=== PATIENT | male | born 1995 | race Caucasian/White ===

== ENCOUNTER → 2018-09-05 08:17 | Outpatient (CLI) | payer BC, SELFPAY ==
[2018-09-05 10:01] LABS: Alanine Aminotransferase 28 U/L (12-78); Albumin Level 4.5 gm/dL (3.4-5.0); Albumin/Globulin Ratio 1.6 (1.1-1.8); Alkaline Phosphatase 78 U/L (46-116); Anion Gap 14.1 mEq/L (5-15); Aspartate Amino Transferase 18 U/L (15-37); Bilirubin,Total 0.5 mg/dL (0.2-1.0); Blood Urea Nitrogen 17 mg/dL (7-18); Calcium 9.3 mg/dL (8.5-10.1); Carbon Dioxide 28 mmol/L (21.0-32.0); Chloride 104 mmol/L (98-107); Chol/HDL Ratio 3.1 (1-3.5); Cholesterol 113 mg/dL (140-200); Creatinine,Serum 1.02 mg/dL (0.70-1.30); Estimated Glomerular Filt Rate 89 ml/min (>60); GFR (African American) 108 ML/MIN (>60); Globulin 2.8 gm/dl (1.3-3.2); Glucose 104 mg/dL (74-106); HDL Cholesterol 37 mg/dL (27-67); LDL Cholesterol 60 mg/dL (0-130); Potassium 4.1 mmoL/L (3.5-5.1); Sodium 142 mmol/L (136-145); Thyroid Stimulating Hormone 7.46 uIU/ml (0.358-3.740); Total Protein,Serum 7.3 gm/dL (6.4-8.2); Triglycerides 81 mg/dL (30-200); VLDL Cholesterol 16 mg/dL (0-40)
[2018-09-06 08:21] LABS: HIV Screen 4th Generation wRfx Non Reactive (Non Reactive)
[2018-09-06 10:54] LABS: Hepatitis C Antibody <0.1 s/co ratio (0.0-0.9); Rapid Plasma Reagin Ab Titer Non Reactive (NonRea<1:1)
== END ==
PROVIDERS: Visit Provider Nurse Practitioner Family
DX: Z00.00 Encounter for general adult medical examination without abnormal findings (principal); Z68.35 Body mass index [BMI] 35.0-35.9, adult; Z13.9 Encounter for screening, unspecified
CPT/HCPCS: 36415; 80053; 80061; 84443; 86592; 86703; 87380; G0432

== ENCOUNTER → 2018-12-02 07:23 | Outpatient (CLI) | payer BC, SELFPAY ==
[2018-12-02 09:21] LABS: Free T4 (Free Thyroxine) 1.11 ng/dl (0.76-1.46); Thyroid Stimulating Hormone 3.78 uIU/ml (0.358-3.740)
== END ==
PROVIDERS: Visit Provider Nurse Practitioner Family
DX: E03.9 Hypothyroidism, unspecified (principal)
CPT/HCPCS: 36415; 84439; 84443

== ENCOUNTER → 2019-05-01 09:36 | Outpatient (CLI) | payer BC, SELFPAY ==
[2019-05-01 12:01] LABS: Free T4 (Free Thyroxine) 1.15 ng/dl (0.76-1.46); Thyroid Stimulating Hormone 2.73 uIU/ml (0.358-3.740)
[2019-05-02 11:28] LABS: HIV Screen 4th Generation wRfx Non Reactive (Non Reactive)
== END ==
PROVIDERS: PCP Nurse Practitioner Family; Visit Provider Nurse Practitioner Family
DX: E03.9 Hypothyroidism, unspecified (principal); Z13.9 Encounter for screening, unspecified
CPT/HCPCS: 36415; 84439; 84443; 86703; G0432

== ENCOUNTER → 2019-12-20 12:30 | Outpatient (CLI) | payer BC, SELFPAY ==
[2019-12-20 12:56] LABS: Basophils % 0.5 % (0.1-2.0); Eosinophils # 0.1 K/mm3 (0.0-0.4); Eosinophils % 1.3 % (0.1-12.0); Hematocrit 45.8 % (42.0-52.0); Hemoglobin 15.4 g/dL (14.1-18.0); Lymphocytes % 33.8 % (10-50); Mean Corpuscular HGB Conc 33.7 g/dL (31.8-35.4); Mean Corpuscular Hemoglobin 31.6 pg (27.0-31.2); Mean Corpuscular Volume 93.8 fl (80-94); Mean Platelet Volume 7.7 fl (7.4-10.4); Monocytes # 0.3 K/mm3 (0.1-1.0); Monocytes % 4.5 % (1.7-9.3); Neutrophils # 3.5 K/mm3 (1.8-7.8); Neutrophils % 59.8 % (37.0-80.0); Platelet Count 200 K/mm3 (142-424); Red Blood Count 4.89 M/mm3 (4.60-6.20); White Blood Count 5.9 K/mm3 (4.8-10.8)
[2019-12-20 13:49] LABS: Chloride 103 mmol/L (98-107); Potassium 4.4 mmoL/L (3.5-5.1); Sodium 142 mmol/L (136-145)
[2019-12-20 13:51] LABS: Blood Urea Nitrogen 18 mg/dl (9-20); Estimated Glomerular Filt Rate 102 ml/min (>60); GFR (African American) 123 ML/MIN (>60)
[2019-12-20 13:52] LABS: Alanine Aminotransferase 31 U/L (12-78); Albumin Level 4.5 g/dl (3.5-5.0); Albumin/Globulin Ratio 1.7 (1.1-1.8); Alkaline Phosphatase 81 U/L (38-126); Anion Gap 16.4 mEq/L (5-15); Aspartate Amino Transferase 25 U/L (17-59); Bilirubin,Total 0.7 mg/dl (0.2-1.3); Calcium 9.3 mg/dl (8.4-10.2); Carbon Dioxide 27 mmol/L (22.0-30.0); Globulin 2.7 g/dL (1.3-3.2); Glucose 95 mg/dl (74-100); Total Protein,Serum 7.2 g/dl (6.3-8.2)
[2019-12-21 12:35] LABS: Hepatitis C Antibody <0.1 s/co ratio (0.0-0.9)
[2019-12-21 18:10] LABS: Hep B Core Ab, Total Negative (Negative); Hep Be Ag Negative (Negative); Hepatitis B Core Antibody IgM Negative (Negative); Hepatitis B Surface Antigen Negative (Negative); Hepatitis Be Antibody Negative (Negative)
[2019-12-22 11:24] LABS: Hep B Surface Ab, Qual Reactive (.)
== END ==
PROVIDERS: Visit Provider Nurse Practitioner Family
DX: E03.9 Hypothyroidism, unspecified (principal); F32.9 Major depressive disorder, single episode, unspecified; Z13.9 Encounter for screening, unspecified; Z72.0 Tobacco use
CPT/HCPCS: 36415; 80053; 85025; 86704; 86706; 86707; 87340; 87350; 87380; 87522

== ENCOUNTER → 2020-01-04 15:19 | Outpatient (CLI) | payer BC, SELFPAY ==
[2020-01-06 19:24] LABS: HIV Screen 4th Generation wRfx Non Reactive (Non Reactive)
== END ==
PROVIDERS: Visit Provider Nurse Practitioner Family
DX: E03.9 Hypothyroidism, unspecified (principal); Z11.4 Encounter for screening for human immunodeficiency virus [HIV]
CPT/HCPCS: 36415; 84443; 86703; G0432

== ENCOUNTER → 2021-09-10 07:13 | Outpatient (CLI) | payer BC, SELFPAY ==
[2021-09-10 09:30] LABS: Thyroid Stimulating Hormone 3.95 uIU/mL (0.465-4.68)
[2021-09-11 11:41] LABS: Hepatitis C Antibody <0.1 s/co ratio (0.0-0.9)
[2021-09-11 12:31] LABS: Rapid Plasma Reagin Ab Titer Non Reactive (NonRea<1:1)
[2021-09-11 13:53] LABS: HIV Screen 4th Generation wRfx Non Reactive (Non Reactive)
== END ==
PROVIDERS: Visit Provider Nurse Practitioner Family
DX: E03.9 Hypothyroidism, unspecified (principal); Z11.4 Encounter for screening for human immunodeficiency virus [HIV]
CPT/HCPCS: 36415; 84443; 86592; 86703; 87380; G0432

== ENCOUNTER 2025-05-06 15:09 | Emergency (ER) | payer BC, SELFPAY ==
--- NOTE | 2025-05-06 15:08 | ECG_ITS ---
APPROVED REPORT Exam: Resting ECG HR:80 bpm ECG Measurements Heart Rate 80 AXES NJ 140 P 57 QRSd 97 QRS 79 QT 364 T 83 QTc 400 Conclusion SINUS RHYTHM NORMAL ECG UNCONFIRMED REPORT Electronically signed by : PATRICIA WEI, 05/06/2025 23:01:49
[2025-05-06 15:10] VITALS: BP 149/89; PULSE 81; RESP 16; TEMP 36.8; O2SAT 100; BMI 39.9
[2025-05-06 15:21] VITALS: PULSE 86; RESP 12; O2SAT 99
[2025-05-06 15:30] VITALS: PULSE 77; RESP 21; O2SAT 98
--- NOTE | 2025-05-06 15:36 | XR_ITS ---
PROCEDURE INFORMATION: Exam: XR Chest Exam date and time: 05/06/2025 3:51 PM Age: 29 years old Clinical indication: Pain; Chest pressure; Additional info: Chest pain/shortness of breath TECHNIQUE: Imaging protocol: Radiologic exam of the chest. Views: 2 views. COMPARISON: No relevant prior studies available. FINDINGS: Airway: The trachea is midline. Lungs: No focal consolidation. Pleural spaces: No significant pleural effusion. No definite pneumothorax. Heart/Mediastinum: Visualized cardiomediastinal silhouette unremarkable. Bones/joints: No acute osseous abnormality. Soft tissues: No acute soft tissue findings. IMPRESSION: No acute findings.
[2025-05-06 15:41] LABS: Hematocrit 46.6 % (42.0-52.0); Hemoglobin 15.7 g/dL (14.1-18.0); Immature Granulocytes % 0.1 %; Mean Corpuscular HGB Conc 33.7 g/dL (31.8-35.4); Mean Corpuscular Hemoglobin 31.5 pg (27.0-31.2); Mean Corpuscular Volume 93.6 fl (80-94); Nucleated Red Blood Cells % 0 %; Platelet Count 206 K/mm3 (142-424); Red Blood Count 4.98 M/mm3 (4.60-6.20); Red Cell Distribution Width-SD 42.4 fL; White Blood Count 7.1 K/mm3 (4.8-10.8)
[2025-05-06 15:44] LABS: Albumin Level 5.4 g/dl (3.5-5.0); Chloride 103 mmol/L (98-107); Potassium 4.0 mmoL/L (3.5-5.1); Sodium 144 mmol/L (136-145)
[2025-05-06 15:46] LABS: Alanine Aminotransferase 39 U/L (12-78); Albumin/Globulin Ratio 1.5 (1.1-1.8); Alkaline Phosphatase 68 U/L (38-126); Anion Gap 19.0 mEq/L (5-15); Aspartate Amino Transferase 33 U/L (17-59); Bilirubin,Total 1.0 mg/dl (0.2-1.3); Blood Urea Nitrogen 14 mg/dl (9-20); Carbon Dioxide 26 mmol/L (22.0-30.0); Creatinine Clearance Estimated 150 mL/min (50-200); Creatinine,Serum 1.10 mg/dl (0.66-1.25); Estimated Glomerular Filt Rate 78 ml/min (>60); GFR (African American) 94 ML/MIN (>60); Globulin 3.5 g/dL (1.3-3.2); Total Protein,Serum 8.9 g/dl (6.3-8.2)
[2025-05-06 15:47] LABS: Calcium 9.7 mg/dl (8.4-10.2); Glucose 112 mg/dl (74-100); Lipase 65 U/L (23-300)
[2025-05-06] MEDS: IBUPROFEN 800 MG TABLET PO (15:47)
[2025-05-06] MEDS: ACETAMINOPHEN 500MG TAB 1000 MG PO (15:48)
[2025-05-06 15:59] LABS: Troponin I < 0.01 ng/ml (0.00-0.034)
[2025-05-06 16:00] VITALS: PULSE 78; RESP 18; O2SAT 97
[2025-05-06 16:30] VITALS: PULSE 81; RESP 13; O2SAT 96
--- NOTE | 2025-05-06 17:10 | ED_ITS ---
Discharge Plan Disposition Patient Disposition: Home, Self-Care Condition: Good Prescriptions Prescriptions: No Action prednisone 10 MG tablet 10 mg PO BID 3 Days Qty: 6 0RF amoxicillin 500 MG tablet 500 mg PO TID 10 Days Qty: 30 0RF ondansetron 4 MG tablet,disintegrating 4 mg PO Q8HP PRN (Reason: Nausea) Qty: 20 0RF Referrals Follow up/Referrals: Adis Moraes II, DO [Primary Care Provider, Medical] - See instructions Activity Restrictions/Add. Instructions Additional Instructions/Restrictions: Can take Tylenol and ibuprofen for the next couple days for symptom control. Please return to the emergency department for acute or worsening symptoms. Clinical Impressions Clinical Impression: Chest pain Print Language Print Language: Liberian Discharge ED Provider: Kyra Nuñez Adult HPI General Chief complaint: Chest Pain Stated complaint: chest pain Time Seen by Provider: 05/06/25 15:15 Mode of Arrival: Ambulatory Source of Information: Patient Description of Symptoms (Recalled from ER Triage Doc. by RN): patient presents with chest pain that started Wednesday. patient states that is is mid chest around his sternum, radiates into his left chest and at times into his axilla area. he currently rates it 09/14. no cardiac history. History of Present Illness HPI narrative: Patient is a 29-year-old male who presented to the emergency department with chest pain that started Wednesday. Patient states that his chest pain was on the left side of his chest. Patient states that he is currently not having chest pain. Patient states that the pain would occur for a few seconds at a time and then stop. Patient states that the pain was not worsened by anything in particular. Patient denies any shortness of breath. Patient states that he did take some poppers as well as his Cialis on Wednesday evening and is he is unsure if this is related. Patient states that he has not been sick at all. Patient denies any abdominal pain nausea vomiting or diarrhea. Patient denies any previous surgeries. Patient does not take any daily medications besides the Cialis. Related Data Previous Rx's ?Medication ?Instructions ?Recorded amoxicillin 500 mg tablet 500 mg PO TID 10 days #30 ta bs 05/05/19 ondansetron 4 mg disintegrating 4 mg PO Q8HP PRN Nause a ##20 05/05/19 tablet prednisone 10 mg tablet 10 mg PO BID 3 days #6 tabs 05/05/19 Allergies Allergy/AdvReac Type Severity Reaction Status Date / Time INGREDIENT: NO KNOWN - NO Allergy Unknown Uncoded 05/25/17 14:54 KNOWN DRUG ALLERGY [facility] Disclaimer: The information contained in this section may have been updated after the patient was seen, as this information can be updated by other users. Social History Smoking Status: Light tobacco smoker second hand exposure: No alcohol intake: never current occupational status: other Travel in the last 8 weeks?: None Have you lived/traveled outside [place] in past 30 days?: No Contact w/someone who lives/traveled outside [place] past 30 days?: No Exposure to someone with infectious disease in past 14 days?: No Do you have a fever (greater than 100.4 F or 38 C)?: No Have you tested positive for COVID-19?: No Exposed to someone with COVID-19 in past 14 days?: No Do you have a sore throat?: No Do you have a cough?: No Do you have any weakness?: No Do you have any diarrhea?: No Are you experiencing any unusual bleeding?: No Do you have any muscle aches/pain?: No Do you have any abdominal pain?: No Are you experiencing loss of taste or smell?: No ROS Obtained: Yes All systems reviewed & no additional complaints except as documented and Yes Systems reviewed as appropriate & no additional complaints except as documented Physical Exam General General appearance: alert and in no apparent distress Head Head exam: atraumatic, normocephalic and normal inspection Eye Eye exam: Present normal appearance, PERRL and EOMI; Absent scleral icterus ENT ENT exam: Present normal exam and normal external ear exam Neck Neck exam: Present normal inspection and full ROM Chest Chest inspection: Present normal inspection and symmetric chest wall rise Respiratory Respiratory exam: Present normal lung sounds bilaterally; Absent respiratory distress or wheezes Cardiovascular Cardiovascular exam: Present regular rate, normal rhythm and normal heart sounds Abdominal Exam Abdominal exam: Present soft and distention; Absent tenderness, guarding or rebound Extremities Exam Extremities exam: Present normal inspection and full ROM Back Exam Back exam: Present normal inspection and full ROM Neurological Exam Neurological exam: Present alert and oriented X3 Psychiatric Psychiatric exam: Present normal affect and normal mood Skin Skin exam: Present warm and dry Medical Decision Making Medical Records Medical records reviewed: Yes I reviewed the patient's medical records. Screening: Per USPSTF and CDC recommendations, given the prevalence of disease in our region, it is our hospital?s policy to screen for HIV and viral Hepatitis for all patients aged 18 and over and those with ongoing risk factors. Joe Inquiry Pt receiving controlled substance: No Joe was queried for this patient: No Vital Signs: 05/06/25 15:10 05/06/25 15:21 05/06/25 15:30 Temperature 98.2 F Temperature Source Oral Pulse Rate 86 77 Pulse Rate [Right Radial] 81 Respiratory Rate 16 12 21 Blood Pressure Blood Pressure [Right Arm] 149/89 H Blood Pressure Mean [Right Arm] 109 Blood Pressure Source Blood Pressure Source [Right Arm] Automatic Cuff Blood Pressure Position Blood Pressure Position [Right Arm] Sitting 02 Sat by Pulse Oximetry 100 99 98 Oxygen Delivery Method Room Air Room Air 05/06/25 16:00 05/06/25 16:30 05/06/25 17:33 Temperature 98 F Temperature Source Oral Pulse Rate 78 81 67 Pulse Rate [Right Radial] Respiratory Rate 18 13 16 Blood Pressure 124/87 Blood Pressure [Right Arm] Blood Pressure Mean [Right Arm] Blood Pressure Source Automatic Cuff Blood Pressure Source [Right Arm] Blood Pressure Position Sitting Blood Pressure Position [Right Arm] 02 Sat by Pulse Oximetry 97 96 Oxygen Delivery Method Room Air Room Air Room Air Lab Data Lab results reviewed: Yes I reviewed the patient's lab results. Lab Results 05/06/25 15:28: WBC 7.1, RBC 4.98, Hgb 15.7, Hct 46.6, MCV 93.6, MCH 31.5 H, MCHC 33.7, RDW 12.2, Plt Count 206, MPV 9.3, Neut % (Auto) 68.9, Lymph % (Auto) 25.3, [place] % (Auto) 5.0, Eos % (Auto) 0.4, Baso % (Auto) 0.3, Neut # (Auto) 4.9, Lymph # (Auto) 1.8, [place] # (Auto) 0.4, Eos # (Auto) 0.0, Baso # (Auto) 0.0, Sodium 144, Potassium 4.0, Chloride 103, Carbon Dioxide 26, Anion Gap 19.0 H, BUN 14, Creatinine 1.10, Estimated Creat Clear 150, Estimated GFR 78, Est GFR ( Amer) 94, Glucose 112 H, Calcium 9.7, Total Bilirubin 1.0, AST 33, ALT 39, Alkaline Phosphatase 68, Troponin I < 0.01, Total Protein 8.9 H, Albumin 5.4 H, Globulin 3.5 H, Albumin/Globulin Ratio 1.5, Lipase 65 05/06/25 15:28 05/06/25 15:28 Orders (Tests/Meds): ED MEDICATIONS Discontinued Medications Generic Name Dose Route Start Last Admin Trade Name Araceli PRN Reason Stop Dose Admin Acetaminophen 1,000 mg 05/06/25 15:37 05/06/25 15:48 Acetaminophen 500mg Tab PO 05/06/25 15:38 1,000 mg ONCE ONE Administration Ibuprofen 800 mg 05/06/25 15:38 05/06/25 15:47 Ibuprofen 800 Mg Tablet PO 05/06/25 15:39 800 mg ONCE ONE Administration ORDERS Category Date Time Status CXR 2 view (NOT portable) [XR chest 2V] Stat Exams 05/06/25 15:36 Completed CBC w/Auto Diff [Complete Blood Count Auto Diff] Stat Lab 05/06/25 15:28 Completed CMP [Comprehensive Metabolic Panel] Stat Lab 05/06/25 15:28 Completed Lipase Stat Lab 05/06/25 15:28 Completed Trop I [Troponin I] Stat Lab 05/06/25 15:28 Completed Medical Decision Narrative: Patient is a 29-year-old male with no significant past medical history who presented to the emergency department with left-sided chest pain that occurred on Wednesday with no longer present. On arrival, patient was hemodynamically stable with unremarkable vital signs. Differential includes but not limited to: ACS/PR, costochondritis, musculoskeletal spasm, pneumothorax, pleural effusion, arrhythmia, amongst others. Patient's labs were reviewed and interpreted by myself: CBC showed no leukocytosis, hemoglobin was stable. CMP was unremarkable. Troponin was less than 0.01. Lipase was normal. EKG was reviewed and interpreted by myself and showed normal sinus rhythm without acute ST or T wave changes concerning for ischemia. Chest x-ray was reviewed and interpreted by myself and showed no focal consolidation, pneumothorax, pleural effusion or other acute cardiopulmonary process. Given that patient's symptoms were on Wednesday no longer present I felt that single troponin was indicated. Patient was given Tylenol Motrin in the emergency department. At this time given patient's unremarkable workup I felt the patient was stable and appropriate for discharge home. Return precautions were discussed. Critical Care Critical Care Time Critical Care Time: No
[2025-05-06 17:33] VITALS: BP 124/87; PULSE 67; RESP 16; TEMP 36.6; O2SAT 99
== END 2025-05-06 17:34 | disposition home or self-care (01) ==
PROVIDERS: Emergency Provider Student in an Organized Health Care Education/Training Program; PCP Student in an Organized Health Care Education/Training Program
DX: R07.9 Chest pain, unspecified (principal); F17.200 Nicotine dependence, unspecified, uncomplicated
CPT/HCPCS: 71046; 80053; 83690; 84484; 85025; 93005; 99285